=== PATIENT | female | born 1995 | race Caucasian/White ===

== ENCOUNTER 2017-12-09 13:01 | Emergency (ER) | payer OTHER ==
[2017-12-09] MEDS: ACETAMINOPHEN 500 MG TAB PO (16:07)
== END 2017-12-09 16:18 | disposition home or self-care (01) ==
LOC: FTE 13:01
DX: R05 Cough (principal); R50.9 Fever, unspecified; R11.10 Vomiting, unspecified
CPT/HCPCS: 99283; Z7502